=== PATIENT | female | born 1950 | race Two or more races ===

== ENCOUNTER 2017-08-02 19:27 | Emergency (ER) | payer MEDICARE ==
[~2017-08-02] VITALS: Ht 154.9 cm; Wt 54.4 kg
[2017-08-02] MEDS ORDERED: MORPHINE SULFATE 4 MG/1 ML DISP.SYRIN IM ONE (19:45)
[2017-08-02] MEDS ORDERED: ONDANSETRON ODT 4 MG TAB.RAPDIS SL ONE (19:45)
--- NOTE | 2017-08-02 19:54 | NUR ---
Patient is brought in by employer. Patient is noted with right wrist pain and visible deformity. Patient states she fell down while walking in a dark parking lot. She denies hitting her head or knock out.
[2017-08-02] MEDS ORDERED: MORPHINE SULFATE 4 MG/1 ML DISP.SYRIN ONE (20:03)
[2017-08-02] MEDS ORDERED: ONDANSETRON ODT 4 MG TAB.RAPDIS ONE (20:03)
--- NOTE | 2017-08-02 20:42 | NUR ---
Patient discharged to home in stable conditon. Written and verbal after care instructions given. Patient verbalizes understanding of instructions. Ambulated from ER with stable gait. Patient will be driven home by her friend in a private vehicle. All belongings taken with patient.
[2017-08-02 20:43] VITALS: BP 140/75
== END 2017-08-02 20:44 | disposition home or self-care (01) ==
LOC: ER 19:27
DX: S52.531A Colles' fracture of right radius, initial encounter for closed fracture (principal); S80.212A Abrasion, left knee, initial encounter; W01.0XXA Fall on same level from slipping, tripping and stumbling without subsequent striking against object, initial encounter; Y93.89 Activity, other specified; Y92.89 Other specified places as the place of occurrence of the external cause; Y99.8 Other external cause status
CPT/HCPCS: 29125; 73110; 96372; 99284; A4663; J2270; Q0162